=== PATIENT | male | born 1990 | race Caucasian/White ===

== ENCOUNTER 2020-04-17 20:53 | Emergency (ER) | payer OTHER, MEDICAID ==
[~2020-04-17] VITALS: Ht 182.9 cm; Wt 105.7 kg
[2020-04-17 21:00] VITALS: Ht 182.9 cm; Wt 105.7 kg
[2020-04-17 21:59] VITALS: BP 145/93
== END 2020-04-17 21:59 | disposition home or self-care (01) ==
LOC: ED 20:53
DX: S09.8XXA Other specified injuries of head, initial encounter (principal); S16.1XXA Strain of muscle, fascia and tendon at neck level, initial encounter; V49.3XXA Car occupant (driver) (passenger) injured in unspecified nontraffic accident, initial encounter; Y93.I9 Activity, other involving external motion; Y92.413 State road as the place of occurrence of the external cause; Y99.8 Other external cause status